=== PATIENT | female | born 1995 | race African-American/Black ===

== ENCOUNTER 2024-07-02 15:51 | Emergency (ER) | payer SELFPAY ==
[~2024-07-02] VITALS: Ht 172.7 cm; Wt 64.0 kg
[2024-07-02 15:53] VITALS: BP 108/78; PULSE 71; RESP 16; TEMP 98.6; O2SAT 99
== END 2024-07-02 17:00 | disposition left against medical advice (07) ==
LOC: ER 15:51
DX: R53.1 Weakness (principal); Z53.21 Procedure and treatment not carried out due to patient leaving prior to being seen by health care provider

== ENCOUNTER 2024-07-02 17:56 | Emergency (ER) | payer SELFPAY ==
[~2024-07-02] VITALS: Ht 175.3 cm; Wt 59.0 kg
[2024-07-02 17:58] VITALS: O2SAT 99
[2024-07-02 18:23] VITALS: BP 110/69; PULSE 72; RESP 14; TEMP 98.2
== END 2024-07-02 18:52 | disposition home or self-care (01) ==
LOC: ER 17:56
DX: R53.1 Weakness (principal); R55 Syncope and collapse; Z59.00 Homelessness unspecified
CPT/HCPCS: 99283